=== PATIENT | female | born 1965 | race Caucasian/White ===

== ENCOUNTER → 2017-11-22 | Outpatient (CLI) | payer BC, OTHER | END | disposition home or self-care (01) | LOC: US 09:06 | DX: I08.1 Rheumatic disorders of both mitral and tricuspid valves (principal); I70.0 Atherosclerosis of aorta | CPT/HCPCS: 76770; 93306 ==

== ENCOUNTER → 2018-11-16 | Outpatient (CLI) | payer BC ==
[2014-08-13 10:59] VITALS: BP 120/77
[~2018-11-16] MED LIST: ALBU2.5V8 IH; ALPR0.5T PO; ASPI325T8 PO; CLOP75TA PO; CRESTOR10 MG PO; CYCL10TA2 PO; FLUT16SP2 NS; FLUT1DIS3 IH; INSU100V SQ; INSU100V8 SQ; LISI2.5T PO; MELO7.5O PO; METF10007 PO; METO-239 PO; OXYC-411 PO; PANT40TA5 PO; PREG100C PO; PREG150C PO; RANI150T2 PO; TOLT4CAP12 PO; TRAM200T34 PO; TRAM50TA PO
--- NOTE | 2018-11-16 09:53 | CARD ---
MR#: [id number] Date of Study: 11/16/2018 Ordering Physician: MARIBEL BROWNING, Referring Physician: MARIBEL BROWNING, Tech: Riya Bone DALY APPROVED REPORT EXAM: Two-dimensional and M-mode echocardiogram with Doppler and color Doppler. Other Information Quality : Good INDICATION Ischemic Cardiomyopathy 2D DIMENSIONS RVDd3.1 (2.9-3.5cm)Left Atrium(2D)4.0 (1.6-4.0cm) IVSd1.1 (0.7-1.1cm)Aortic Root(2D)2.7 (2.0-3.7cm) LVDd5.7 (3.9-5.9cm)LVOT Diameter2.0 (1.8-2.4cm) PWd1.0 (0.7-1.1cm)LVDs5.0 (2.5-4.0cm) FS (%) 10.0 %SV43.7 ml LVEF(%)20.0 (>50%) Aortic Valve AoV Peak Todd.109.4cm/sAoV VTI18.3cm AO Peak GR.4.8mmHgLVOT Peak Todd.68.3cm/s AO Mean GR.3mmHgAVA (VMAX)2.02cm2 Mitral Valve MV E Tpkmseui91.6cm/sMV DECEL MRCS156hm MV A Uiqdzioo71.5cm/sE/A Ratio1.2 Tricuspid Valve TR P. Mtefexfo341xa/sRAP [id number] TR Peak Gr.27ueUqLTZF44mgGx Pulmonary Vein S1 Lobceudm55.9cm/sD2 Tmakfufl18.4cm/s LEFT VENTRICLE The left ventricle is normal size. There is normal left ventricular wall thickness. Left ventricle sy stolic function is severely impaired. The Ejection Fraction is 20-25%. Severe global hypokinesis with predominance in the anterior and inferior downey. Transmitral Doppler flow pattern is Grade II-pseudo normal filling dynamics. RIGHT VENTRICLE The right ventricle is normal size. The right ventricular systolic function is normal. ATRIA The left atrium is mildly dilated. The right atrium size is normal. The interatrial septum is intact with no evidence for an atrial septal defect or patent foramen ovale as noted on 2-D or Doppler imagi ng. AORTIC VALVE The aortic valve is calcified but opens well. Doppler and Color Flow revealed no significant aortic r egurgitation. There is no significant aortic valvular stenosis. MITRAL VALVE The mitral valve is normal in structure and function. There is no evidence of mitral valve prolapse. There is no mitral valve stenosis. Doppler and Color-flow revealed trace mitral regurgitation. TRICUSPID VALVE The tricuspid valve is normal in structure and function. Doppler and Color Flow revealed mild to mode rate tricuspid regurgitation. There is moderate-severe pulmonary hypertension. The PA pressure was es timated at 68 mmHg. There is no tricuspid valve stenosis. PULMONIC VALVE Doppler and Color Flow revealed mild pulmonic valvular regurgitation. There is no pulmonic valvular s tenosis. GREAT VESSELS The aortic root is normal in size. The ascending aorta is normal in size. The IVC is normal in size a nd collapses <50% with inspiration. PERICARDIAL EFFUSION There is no evidence of significant pericardial effusion. Critical Notification Critical Value: No <Conclusion> Left ventricle systolic function is severely impaired. The Ejection Fraction is 20-25%. Severe global hypokinesis with predominance in the anterior and inferior downey. Doppler and Color Flow revealed mild to moderate tricuspid regurgitation. There is moderate-severe pu lmonary hypertension. The PA pressure was estimated at 68 mmHg. Signed by : Charlie Simpson, Electronically Approved : 11/16/2018 09:53:12
== END | disposition home or self-care (01) ==
LOC: ECHO 08:24
PROVIDERS: ATTEND Internal Medicine Cardiovascular Disease
DX: I07.1 Rheumatic tricuspid insufficiency (principal); I27.20 Pulmonary hypertension, unspecified; I37.1 Nonrheumatic pulmonary valve insufficiency; I70.0 Atherosclerosis of aorta; I25.5 Ischemic cardiomyopathy
CPT/HCPCS: 93306